=== PATIENT | female | born 1960 | race African-American/Black ===

== ENCOUNTER → 2017-10-28 | Outpatient (CLI) | payer OTHER | LOC: ULTRA 08:51 → RAD 08:51 | DX: R10.9 Unspecified abdominal pain (principal); Z12.31 Encounter for screening mammogram for malignant neoplasm of breast ==

== ENCOUNTER → 2017-12-16 | Outpatient (CLI) | payer OTHER ==
[~2017-12-16] MED LIST: IMDUR 30 MG TAB30 M1 PO; ROSUVASTATIN CA10 MG PO; ZYRTEC10 M5 PO
--- NOTE | ~2017-12-16 | EKG ---
[address] [address] ELECTROCARDIOGRAM REPORT Name: ABNER PATEL Room #: REG [facility] [id number] Admission: 12/16/17 Attend Phys: Williams Ugarte Discharge: Date of : 60 Report #: [id number] THIS REPORT FOR: //name// [facility] Test Date: 2017-12-16 Test Time: 08:52:04 Pat Name: ABNER PATEL Department: Room: Gender: F Binder Stripper Hand: : 1960 Requested By: Williams Ugarte Order Number: [id number] MD: David Monterroso Measurements Intervals [place] Rate: 72 P: 59 NC: 160 QRS: -1 QRSD: 93 T: 46 QT: 405 QTc: 444 Interpretive Statements Sinus rhythm LVH by voltage No previous ECG available for comparison Electronically Signed On 12-16-2017 16:55:52 CDT by David Monterroso [email or web address] <ELECTRONICALLY SIGNED> By: David Monterroso MD 12/16/17 1655 [id number] [id number] MD CHARLES Palacios
--- NOTE | ~2017-12-16 | CATHLAB ---
[facility] [address] [place] [address] INVASIVE PROCEDURE REPORT Name: JORGEABNER Alysia Room #: REG [facility] [id number] Admission: 12/16/17 Attend Phys: Williams Mccartney Discharge: Date of : 60 Date of Service: 12/16/17 1602 Report #: [id number] THIS REPORT FOR: //name// APPROVED REPORT Study performed: 12/16/2017 09:36:24 Patient Details Patient Status: Out-Patient Room #: The patient is a 57 year-old female Event Personnel Williams Ugarte Hydrostatic Tubing Tester, Clair Kaufman RN RN, Darek Julio, Kellie Seals RTR, RELEASE ENGINEER Monitor Procedures Performed Left Heart Cath w/or w/o Coronaries [id number] [facility] supervision of conscious sedation Indication Abnormal ECG, Positive stress test, Chest pain Risk Factors Dysplipidemia Procedure Narrative The Right Groin^ was infiltrated with 1% Lidocaine subcutaneous anesthesia. A PINNACLE 4FR Sheath #[id number] sheath was inserted into the RFA^. Coronary angiography was performed using coronary diagnostic catheters. The right coronary system was accessed and visualized with a JR4 catheter. The left coronary system was accessed and visualized with a JL4 catheter. The left ventricle was accessed and visualized with a PIGTAIL catheter. Left ventricular/Aortic Valve gradient assessed via catheter pullback. Closure device was deployed with a 6 Fr MYNXGRIP 6/7F #[id number]. There was no hematoma. Intraoperative Conscious Sedation Sedation start time: 10.11 Case end Time: 10.32 Versed 2 mg Fluoro Time: 2.37 minutes Dose: DAP 2833.20 cGycm2 404 mGy [facility] [place] [address] INVASIVE PROCEDURE REPORT Name: ABNER PATEL Room #: [facility]#: [id number] Admission: 12/16/17 Attend Phys: Williams Mccartney Discharge: Date of : 60 Date of Service: 12/16/17 1602 Report #: [id number] Contrast Type and Amount: Omnipaque 60 ml Diagnostic Cath Left Main Assessment is normal origin and caliber. Free of high-grade disease. Bifurcates into left anterior descending circumflex coronary artery. Significant lesions are noted or irregularities present. LAD Moderate caliber type II vessel which courses in the interventricular sulcus giving rise to 2 diagonal branches after which the vessel rapidly tapers to terminating as a small string-like vessel at the apex. Diagonal 1 Small-caliber vessel with an ostial tapering. The vessel is less than half a millimeter diameter. Circumflex Moderate caliber vessel which courses posteriorly in the AV groove. It then gives rise to first marginal branch is small in size and free of high-grade disease. It then continues on bifurcating with a moderate caliber very tortuous marginal branch on the lateral aspect of the heart and a small-caliber posterior wall branch. This tapers and is terminal aspect of the left circumflex proper. OM1 Small-caliber vessel without significant high-grade disease OM2 Water caliber vessel on the lateral aspect of the heart for a tortuous in its course but without significant obstructive lesions. Right Coronary Moderate caliber vessel normal origin. Has luminal irregularities of less than 30% proximally and gives rise to a string-like RV marginal branch. It then continues on to the crux of the heart with posterior descending artery is rising and the posterior circulation consisting of a posterior wall branch and several small posterolateral branches. R PDA Moderate caliber vessel which courses in the posterior interventricular sulcus. In the distal third it is abruptly occluded without any antegrade flow present. This region of occlusion is completely resolved without any evidence of any lesions proximally 5 minutes later with reinjection of the right coronary artery. Left Ventriculography Left Ventriculography was not performed. During injections of the left coronary artery ST segments in the inferior leads began to rise with evidence of current of injury. Subsequent initial findings on the right coronary injections are described above with resolution of the ST segments by the time a guide was placed. Angiography at this time demonstrated no significant obstructive lesions. [facility] [address] [place] [address] INVASIVE PROCEDURE REPORT Name: ABNER PATEL Room #: REG [facility] [id number] Admission: 12/16/17 Attend Phys: Williams Mccartney Discharge: Date of : 60 Date of Service: 12/16/17 1602 Report #: [id number] Hemodynamics The aortic pressure is 163/91 mmHg with a mean of 122 mmHg. The left ventricular pressure is 96/14 mmHg with a mean of mmHg. The left ventricular end diastolic pressure is 21 mmHg. There was no gradient across the aortic valve upon pullback. Pullback from the left ventricle to the aorta revealed no gradient across the aortic valve. Conclusion 1. Coronary disease nonobstructive mild intraluminal irregularities 2. Normal hemodynamics a. Hypotension develop with ST segment elevations and resolved with normalization 3. Vasospastic right coronary artery Recommendations Aggressive Medical Therapy Consisting of anti-spasmodic medications initially relieved with long-acting nitrates and may need to convert the diltiazem calcium channel felipa to a dihydropyridine to provide or vasodilatory effect <ELECTRONICALLY SIGNED> By: Williams Ugarte MD 12/16/17 1602 160 160 Williams Ugarte MD /INF
== END | disposition home or self-care (01) ==
LOC: CATH 07:15
DX: I25.111 Atherosclerotic heart disease of native coronary artery with angina pectoris with documented spasm (principal); E78.5 Hyperlipidemia, unspecified; Z87.891 Personal history of nicotine dependence; Z82.49 Family history of ischemic heart disease and other diseases of the circulatory system; Z90.710 Acquired absence of both cervix and uterus; Z88.0 Allergy status to penicillin; Z79.899 Other long term (current) drug therapy; Z98.890 Other specified postprocedural states

== ENCOUNTER 2018-08-04 10:59 | Emergency (ER) | payer OTHER ==
[~2018-08-04] VITALS: Ht 167.6 cm; Wt 90.7 kg
[2018-08-04 11:23] LABS: ABSOLUTE NEUTROPHILS 2.2 thou/uL (1.4-8.2); BASOPHILS 0.5 % (0.0-2.0); EOSINOPHILS 0.6 % (0.0-3.0); HEMATOCRIT 37.3 % (37.0-47.0); HEMOGLOBIN 12.4 gm/dL (12.0-15.0); LYMPHOCYTES 40.2 % (24.0-44.0); MCH 26.3 pg (26.0-34.0); MCHC 33.4 g/dL (28.0-37.0); MCV 78.7 fL (80.0-100.0); MONOCYTES 10.1 % (1.0-8.0); PLATELET COUNT 287 thou/uL (150-400); POLYS 48.6 % (36.0-66.0); RBC 4.73 mil/uL (4.20-5.00); RDW 15.4 % (10.5-14.5); WBC 4.6 thou/uL (4.0-11.0)
[2018-08-04 11:30] LABS: URINE BILIRUBIN NEGATIVE (Negative); URINE BLOOD TRACE (Negative); URINE CLARITY CLEAR; URINE COLOR YELLOW; URINE GLUCOSE-RANDOM* NEGATIVE (Negative); URINE KETONES TRACE (Negative); URINE NITRITE NEGATIVE (Negative); URINE PROTEIN (DIPSTICK) NEGATIVE (Negative); URINE SPECIFIC GRAVITY 1.025 (1.005-1.035)
[2018-08-04 11:31] LABS: URINE LEUKOCYTES NEGATIVE (Negative); URINE UROBILINOGEN 0.2 E.U./dl (0.2-1.0)
[2018-08-04 11:35] LABS: ANION GAP 9 mmol/L (7-16); BUN 15 mg/dL (7-18); CALCIUM 9.1 mg/dL (8.5-10.1); CHLORIDE 102 mmol/L (98-107); CO2 24 mmol/L (21-32); CREATININE 0.8 mg/dL (0.6-1.0); GLUCOSE 91 mg/dL (74-106); POTASSIUM 3.7 mmol/L (3.5-5.1); SODIUM 135 mmol/L (136-145)
[2018-08-04 11:45] LABS: ALBUMIN 3.4 g/dL (3.4-5.0); SGOT 51 U/L (15-37); SGPT 67 U/L (30-65); TOTAL BILIRUBIN 0.3 mg/dL (<0.1-1.0); TROPONIN-I <0.06 ng/mL (<0.06)
[2018-08-04] MEDS ORDERED: BUTALB-APAP-CA1 EACH PO (13:08)
[2018-08-04 13:22] VITALS: BP 147/90
--- NOTE | 2018-08-05 07:58 | EKG ---
[address] [address] [place] [address] ELECTROCARDIOGRAM REPORT Name: ABNER PATEL Room #: DEP [facility] [id number] Admission: 08/04/18 Attend Phys: Discharge: 08/04/18 Date of : 60 Report #: [id number] THIS REPORT FOR: //name// [facility] Test Date: 2018-08-04 Test Time: 11:25:17 Pat Name: ABNER PATEL Department: Room: Gender: F Building Code Inspector: [facility] : 1960 Requested By: Juan Valero Order Number: [id number] MD: David Monterroso Measurements Intervals [place] Rate: 83 P: 41 MA: 161 QRS: -20 QRSD: 112 T: 54 QT: 406 QTc: 477 Interpretive Statements Sinus rhythm Consider left atrial enlargement Incomplete left bundle branch block Left ventricular hypertrophy Compared to ECG 12/16/2017 08:52:04 Left bundle-branch block now present Electronically Signed On 08-05-2018 7:58:33 BLANKER PRESS OPERATOR by David Monterroso [email or web address] <ELECTRONICALLY SIGNED> By: David Monterroso MD 08/05/18 0758 1125 1125 David Monterroso MD /ROSMERY
== END 2018-08-04 13:28 | disposition home or self-care (01) ==
LOC: ER 10:59
PROVIDERS: Emergency Medicine
DX: R55 Syncope and collapse (principal); G43.909 Migraine, unspecified, not intractable, without status migrainosus; E78.5 Hyperlipidemia, unspecified; Z90.710 Acquired absence of both cervix and uterus; Z87.891 Personal history of nicotine dependence; Z88.0 Allergy status to penicillin

== ENCOUNTER → 2019-02-17 | Outpatient (CLI) | payer OTHER ==
[~2019-02-17] MED LIST changes: +BUTALB-APAP-CA1 EACH PO
== END ==
LOC: RAD 11:41
DX: Z12.31 Encounter for screening mammogram for malignant neoplasm of breast (principal)

== ENCOUNTER 2019-02-24 11:04 | Emergency (ER) | payer OTHER ==
[~2019-02-24] VITALS: Ht 167.6 cm; Wt 91.2 kg
[2019-02-24] MEDS ORDERED: NORVASC5 MG PO (11:08)
[2019-02-24 11:43] LABS: ABSOLUTE NEUTROPHILS 5.5 thou/uL (1.4-8.2); BASOPHILS 0.6 % (0.0-2.0); HEMOGLOBIN 13.1 gm/dL (12.0-15.0); LYMPHOCYTES 25.9 % (24.0-44.0); MCH 26.6 pg (26.0-34.0); MCHC 33.6 g/dL (28.0-37.0); MCV 79.2 fL (80.0-100.0); MONOCYTES 7.4 % (1.0-8.0); PLATELET COUNT 302 thou/uL (150-400); POLYS 65.1 % (36.0-66.0); RBC 4.93 mil/uL (4.20-5.00); RDW 14.5 % (10.5-14.5); WBC 8.4 thou/uL (4.0-11.0)
[2019-02-24 11:53] LABS: CALCIUM 8.7 mg/dL (8.5-10.1); CREATININE 0.7 mg/dL (0.6-1.0); POTASSIUM 3.6 mmol/L (3.5-5.1)
[2019-02-24 12:03] LABS: ALBUMIN 3.5 g/dL (3.4-5.0); TOTAL BILIRUBIN 0.3 mg/dL (<0.1-1.0); TOTAL PROTEIN 9.4 g/dL (6.4-8.2)
[2019-02-24] MEDS ORDERED: CLEOCIN HCL150 MG PO (12:59)
[2019-02-24 13:25] VITALS: BP 155/98
== END 2019-02-24 13:31 | disposition home or self-care (01) ==
LOC: ER 11:04
PROVIDERS: Physician Assistant
DX: K04.7 Periapical abscess without sinus (principal); E78.5 Hyperlipidemia, unspecified; F17.210 Nicotine dependence, cigarettes, uncomplicated; Z90.710 Acquired absence of both cervix and uterus; Z88.0 Allergy status to penicillin

== ENCOUNTER → 2020-06-29 | Outpatient (CLI) | payer BC, OTHER ==
[~2020-06-29] MED LIST changes: +CLEOCIN HCL150 MG PO; +NORVASC5 MG PO
== END ==
LOC: CAT 15:25
PROVIDERS: ATTEND Family Medicine
DX: I70.8 Atherosclerosis of other arteries (principal)

== ENCOUNTER → 2020-07-12 | Outpatient (CLI) | payer BC, OTHER ==
[~2020-07-12] MED LIST changes: +ADVIL200 M3 PO; +APPLE CIDER VI500 MG PO; +MULTI VITAMIN1 EACH PO; +TYLENOL EXTRA500 MG PO; +VITAMIN D325 MCG PO
== END ==
LOC: NUC 09:53
PROVIDERS: ATTEND Family Medicine
DX: R10.11 Right upper quadrant pain (principal)

== ENCOUNTER → 2020-07-13 | Outpatient (CLI) | payer BC, OTHER ==
[~2020-07-13] MED LIST changes: -ADVIL200 M3 PO; -TYLENOL EXTRA500 MG PO
== END ==
LOC: LAB 14:56
PROVIDERS: ATTEND Surgery
DX: Z01.812 Encounter for preprocedural laboratory examination (principal); Z20.828 Contact with and (suspected) exposure to other viral communicable diseases

== ENCOUNTER 2020-07-16 06:12 | Observation (INO) | payer BC, OTHER ==
[~2020-07-16] VITALS: Ht 152.4 cm; Wt 92.7 kg
[2020-07-16 07:11] LABS: HEMATOCRIT 35.2 % (37.0-47.0); HEMOGLOBIN 11.6 gm/dL (12.0-15.0)
[2020-07-16 07:12] VITALS: BP 155/104
[2020-07-16 10:45] VITALS: BP 143/99
--- NOTE | 2020-07-16 12:37 | NUR ---
PATIENT ARRIVED FROM POST OP AFTER REPORT AT 10:45 PT ACCOMPANIED BY . PT ALERT XS 4. V.S 97.8 18 81 143/99 O2 SAT = 95 %RA. HEIGHT = 5'0'' WEIGHT = 204.3 LBS. ADMISSION PAPERWORK DONE AND IV FLUIDS STARTED. DIET CHANGED TO REGULAR. PT OF DR BALDERRAMA HAD CHARMAINE RENEE DONE 4 BANDAIDS TO ABD INTACT IN PLACE. PT W/O PAIN OR RESP DISTRESS. WALKED WITH STEADY GAIT AND SBA FROM STAFF TO BATHROOM TO URINATE. NO PAIN OR RESP DISTRESS NOTED.
[2020-07-16 16:59] VITALS: BP 151/97
[2020-07-16 20:15] VITALS: BP 146/97
[2020-07-17 03:48] VITALS: BP 150/91
--- NOTE | 2020-07-17 05:06 | NUR ---
Assumed pt care at 1900. A/OX4,pleasant. VSS, C/o a headache at beginning of shift and not wanting IV fluids notified and order for Tylenol and dc fluids given. Pt is up with SBA, voiding adequately. Denies N/V. 3 lap sats on abd with bandaids on,c/o navel incision pain medicated with Tylenol and effective. Resting w/o any distress noted, call light/personal items within reach will continue to monitor pt.
--- NOTE | 2020-07-17 07:34 | NUR ---
PATIENT REFUSED FLU VACCINE DOES NOT WANT PHARMACY CALLED.
--- NOTE | 2020-07-17 07:49 | NUR ---
ASSUMED CARE OF PATIENT SHE IS UP AMBULATING THE HALLS. NO PAIN OR RESP DISTRESS. PT IS PLEASANT AND COOPERATIVE WITH CARE.
[2020-07-17 07:50] VITALS: BP 141/101
[2020-07-17] MEDS ORDERED: ADVIL200 M3 PO (14:05)
[2020-07-17] MEDS ORDERED: TYLENOL EXTRA500 MG PO (14:05)
[2020-07-17 14:33] VITALS: BP 141/101
--- NOTE | 2020-07-17 14:55 | NUR ---
DISCHARGE PAPERS REVIEWED WITH PATIENT SIGNED AND COPY IN CHART. IV ACSESS DCD. ALL BELONGINGS PACKED AND SENT WITH PATIENT. DR BALDERRAMA HERE TO SEE PATIENT SHE DOES NOT NEED RX'S WILL TAKE TYLENOL AND ADVIL OTC.
--- NOTE | 2020-07-17 16:06 | PATH ---
[facility] [address] [place] [address] PATHOLOGY RPT PROCEDURE Name: ERNESTINA PATEL Room #: 444-P [facility] Ascencio#: [id number] Admission: 07/16/20 Date of : 60 Discharge: 07/17/20 Report #: [id number] Path Case #: [id number] [facility] Accession Number: [id number] . 01 Material submitted: . gallbladder - GALLBLADDER . 01 Clinical history: . CHOLELITHIASIS . 02 Diagnosis: Gallbladder, cholecystectomy: - Mild chronic cholecystitis. (IUV/db; 07/17/2020) LBQ 07/17/2020 1451 Local . 02 Electronically signed: . Adriana Colorado MD, Pathologist NPI- [id number] . 01 Gross description: . The specimen is received in formalin, labeled "Ernestina Patel gallbladder". Received is a previously opened gallbladder measuring 7.7 x 2.5 x 0.8 cm in greatest dimensions displaying a richardson-landeros serosal surface. Opening the specimen reveals a velvety, light landeros mucosa with a gallbladder wall thickness of 0.1 cm. Calculi are not present upon filtration of the specimen container, and no masses or lesions are noted grossly. Computer Game Designer sections, to include the proximal margin, are submitted in cassette A1. (CAA; 07/16/2020) QA/[facility] 07/16/2020 1542 Local . 02 Pathologist provided ICD-10: K81.1 . 02 CPT . 832567 Specimen Comment: A courtesy copy of this report has been sent to [phone] Specimen Comment: [phone] Specimen Comment: Report sent to DR BALDERRAMA / DR BRADEN Performed at: [address] [id number] MD Mendez Carrasco MD Phone: [phone] Performed at: [address] [address] PATHOLOGY RPT PROCEDURE Name: ERNESTINA PATEL Room #: 444-P [facility]..#: [id number] Admission: 07/16/20 Date of : 60 Discharge: 07/17/20 Report #: [id number] Path Case #: [id number] [address] [place] [id number] MD Adriana Colorado MD Phone: [phone]
--- NOTE | 2020-07-18 12:17 | O ---
[facility] [place] [address] [place] [address] OPERATIVE REPORT Name: ABNER PATEL Room #: 444-P [facility] Monse Ascencio#: [id number] Admission: 07/16/20 Attend Phys: Gerson Tellez MD Discharge: 07/17/20 Date of : 60 Report #: [id number] THIS REPORT FOR: cc: Sloan Jackson James A. DO Chu, Peter Y. MD ~ PREOPERATIVE DIAGNOSES: Acalculous cholecystitis, biliary dyskinesia. POSTOPERATIVE DIAGNOSES: Acalculous cholecystitis, biliary dyskinesia. PROCEDURES PERFORMED: Laparoscopic cholecystectomy with cholangiogram. SURGEON: Gerson Tellez MD ANESTHESIA: General anesthesia. COMPLICATIONS: None. ESTIMATED BLOOD LOSS: 5 mL. PROCEDURE NOTE: With the patient under general anesthesia, abdomen was prepped and draped in sterile fashion. IV antibiotic was administered. Timeout was performed. The patient has an infraumbilical incision. I decided to go ahead and go above the umbilicus to avoid the scar there. After anesthetizing the skin with 0.25% Marcaine, the fascia was identified. Fascia was grasped with hemostat. Fascia was then opened under visualization. A 0 Vicryl suture placed on the fascia for retraction. With the abdominal wall lifted anteriorly, Veress needle was then placed through the peritoneum. Abdominal cavity was insufflated with CO2. After creating pneumoperitoneum pressure of 15, an 11 mm trocar was placed into the pneumoperitoneum, no harm to underlying tissue. Two 5 mm trocars were placed in the right upper quadrant laterally. The patient was placed in Trendelenburg position. The patient has some pain in the right lower quadrant area. The intestine looked normal. The cecum is moderately stool filled. The appendix is quite deep in the pelvis. I was able to see portions of the proximal appendix and it looks normal. No further evaluation was done. Attention was then placed to the gallbladder. A third 5 mm trocar was placed in right epigastrium. The patient was placed in a reverse Trendelenburg position, right side tilted up. Gallbladder was identified without difficulty. The gallbladder seemed to be mildly elongated. The peritoneum over the cystic duct was dissected free. There were fibrous strands over the cystic duct likely from chronic inflammation. Cystic duct was isolated. A clip was placed in junction of cystic duct to the gallbladder. Opening was made in the cystic duct, right at the gallbladder cystic duct junction. Cholangiogram catheter was placed. I was only able to get the tip in. This was held with a clip. Injection of the dye was performed. Fluoroscopic evaluation was performed. The dye was difficult to inject and did take quite a bit of pressure, probably due to the [facility] [address] [address] OPERATIVE REPORT Name: ABNER PATEL Room #: 444-P [facility] Shea MAllison#: [id number] Admission: 07/16/20 Attend Phys: Gerson Tellez MD Discharge: 07/17/20 Date of : 60 Report #: [id number] folds or possibly even scarring in the cystic duct. I was able to get the common duct to fill. Dye flowed into the duodenum. The left hepatic was not filled very well. No filling defect was seen. Catheter was then removed. The proximal cystic duct was then clipped x 2. Cystic duct was then divided. The patient had several branches coming off the cystic artery. These branches were divided separately. The artery did terminate on the gallbladder. This was clipped also. Gallbladder was then freed from the liver bed without difficulty. The gallbladder was removed through the infraumbilical port. The port was replaced. Gallbladder was opened off the field. The patient did have significant cholesterolosis in the gallbladder. No stone was identified. Liver bed was checked, hemostasis obtained. Irrigation was aspirated out. Trocars removed under visualization with evacuation of CO2 as much as possible. The fascia defect above the umbilicus was closed with a [id number] 0 Vicryl. Skin was closed with 5-0 PDS. Steri-Strips applied. <ELECTRONICALLY SIGNED> By: Gerson Tellez MD 07/18/20 1217 1426 1445 Gerson Tellez MD /nt
== END 2020-07-17 15:00 | disposition home or self-care (01) ==
LOC: OR 06:12 → TBA 06:20 → 4S 10:54 → OR 10:55 → 4S 07-17 15:00
PROVIDERS: ADMIT Surgery; ATTEND Surgery
DX: K81.9 Cholecystitis, unspecified (principal); K82.8 Other specified diseases of gallbladder
CPT/HCPCS: 50010; 50101; 50411; 50555; 50558; 51489; 52265; 53307; 53310; 55245; 55317; 56462; 56525; 56526; 62110; 62900; 70005